=== PATIENT | male | born 1960 | race Caucasian/White ===

== ENCOUNTER → 2016-09-15 | Outpatient (CLI) | payer OTHER ==
[~2016-09-15] MED LIST: HYDR-3533 PO; VARE.5; VICO7.5T PO
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
--- NOTE | 2016-09-15 11:55 | RADRPT ---
EXAM DATE/TIME: 09/15/2016 11:05 [facility] COMPARISON: No previous studies available for comparison. INDICATIONS : Right knee pain, intermittant MEDICAL HISTORY : None. SURGICAL HISTORY : None. ENCOUNTER: Initial ACUITY: >1 year PAIN SCORE: 5/10 LOCATION: Right knee FINDINGS: Four view examination of the right knee demonstrates no evidence of fracture or dislocation. Bony mi neralization is normal. The articular surfaces are intact. The suprapatellar soft tissues have a no rmal configuration. CONCLUSION: No acute disease or significant arthropathy.. Baljinder Rosario MD on September 15, 2016 at 11:53 Board Certified Radiologist. This report was verified electronically.
== END ==
LOC: HRAD 10:31
DX: M25.561 Pain in right knee (principal); M25.511 Pain in right shoulder
CPT/HCPCS: 73030; 73564

== ENCOUNTER 2016-11-14 16:13 | Emergency (ER) | payer OTHER ==
[~2016-11-14] VITALS: Ht 172.7 cm; Wt 90.0 kg
[~2016-11-14 16:13] MED LIST changes: -HYDR-3533 PO
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
[2016-11-14 19:26] VITALS: BP 162/92; PULSE 60; RESP 17; O2SAT 98
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
[2016-11-14] MEDS ORDERED: CEPHALEXIN MONOHYDRATE 500 MG CAP PO ONE (20:00)
[2016-11-14] MEDS ORDERED: DIPHTH/TETANUS/ACEL PERTUSSIS (BOOSTER) 0.5 ML VIAL/PFS IM ONE (20:00)
[2016-11-14] MEDS ORDERED: HYDR-3533 PO (20:06)
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
--- NOTE | 2016-11-15 23:47 | EKG ---
Date Performed: 11/14/2016 Time Performed: 19:26:45 PTAGE: 56 years EKG: SINUS BRADYCARDIA BORDERLINE ECG NO PREVIOUS TRACING DOCTOR: Luis Carlos Lakhani Interpretating Date/Time 11/15/2016 23:45:48
== END 2016-11-14 21:19 | disposition home or self-care (01) ==
LOC: NEPE 16:13
DX: S70.02XA Contusion of left hip, initial encounter (principal); S09.90XA Unspecified injury of head, initial encounter; S60.512A Abrasion of left hand, initial encounter; S50.312A Abrasion of left elbow, initial encounter; S40.212A Abrasion of left shoulder, initial encounter; R07.89 Other chest pain; M54.2 Cervicalgia; R94.31 Abnormal electrocardiogram [ECG] [EKG]; F17.200 Nicotine dependence, unspecified, uncomplicated; V29.9XXA Motorcycle rider (driver) (passenger) injured in unspecified traffic accident, initial encounter; Z23 Encounter for immunization; Z87.09 Personal history of other diseases of the respiratory system; Z87.39 Personal history of other diseases of the musculoskeletal system and connective tissue
CPT/HCPCS: 70450; 71020; 72125; 73010; 73030; 73502; 90471; 90715; 93005

== ENCOUNTER → 2017-05-03 | Outpatient (CLI) | payer OTHER ==
[~2017-05-03] MED LIST changes: +HYDR-3533 PO; -VARE.5; -VICO7.5T PO
--- NOTE | 2017-05-04 11:40 | EKG ---
Date Performed: 05/03/2017 Time Performed: 11:15:00 PTAGE: 56 years EKG: Sinus rhythm . Normal ECG PREVIOUS TRACING : 11/14/2016 19.26 Since the previous tracing, no significant change noted DOCTOR: Basil Martinez Interpretating Date/Time 05/04/2017 11:34:09
== END ==
LOC: HCAV 10:55
PROVIDERS: ATTEND Orthopaedic Surgery
DX: S83.241A Other tear of medial meniscus, current injury, right knee, initial encounter (principal); X58.XXXA Exposure to other specified factors, initial encounter
CPT/HCPCS: 93005

== ENCOUNTER → 2017-05-11 | Day surgery (SDC) | payer OTHER ==
[~2017-05-11] VITALS: Ht 172.7 cm; Wt 88.5 kg
[~2017-05-11] MED LIST changes: +*MEPERIDINE 25 MG INJ VIAL PERIprocedural Use ONLY ONE; +ACETAMINOPHEN/HYDROcodone 325 MG/5 MG TAB ONE; +BUPIVACAINE/EPINEPHRINE 0.5% PF 30 ML VIAL ONE; +CHLORHEXIDINE GLUCONATE 2 % 1 PACK (2 CLOTHS) TOPICAL PRN; +CHLORHEXIDINE GLUCONATE 4% SOLN 120 ML BTL TOPICAL SCH; +CYCL10TA PO; +LACTATED RINGER'S 1000 ML IV PRN; +MELO15TA20 PO; +METOPROLOL TARTRATE 25 MG TAB PO PRN; +MORPHINE SULFATE 4 MG/ML INJ ONE; +PERC10TA27 PO; +POVIDONE IODINE 5% (ANTISEPSIS KIT) 4 APPLICATIONS EACH NARE PRN; +SODIUM CHLORID 0.9% 500 ML IV PRN; +VENTAER INH
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
[2017-05-11 13:00] VITALS: BP 124/74; PULSE 51; RESP 16; TEMP 98; O2SAT 96
== END | disposition home or self-care (01) ==
LOC: PHSDC 07:17
PROVIDERS: ATTEND Orthopaedic Surgery
DX: S83.242A Other tear of medial meniscus, current injury, left knee, initial encounter (principal); M67.52 Plica syndrome, left knee
CPT/HCPCS: 01400; 29881; E0113; J2175; J2270; J3010; J7120